=== PATIENT | female | born 1950 | race African-American/Black ===

== ENCOUNTER 2018-07-08 09:15 | Day surgery (SDC) | payer MEDICARE, OTHER ==
[2018-07-08 10:08] LABS: HEMATOCRIT 38.7 % (36.0-47.0); HEMOGLOBIN 12.8 g/dL (12.0-15.5); MEAN CORPUSCULAR HEMOGLOBIN 29.4 pg (27.0-33.4); MEAN CORPUSCULAR VOLUME 89 fl (80-97); PLATELET COUNT 248 10^3/uL (150-450); RED BLOOD COUNT 4.35 10^6/uL (3.72-5.28); RED CELL DISTRIBUTION WIDTH 13.3 % (11.5-14.0); WHITE BLOOD COUNT 5.8 10^3/uL (4.0-10.5)
[2018-07-08] MEDS ORDERED: PROPOFOL INJ 200 MG/20 ML VIAL IV ONE (10:12)
[2018-07-08 10:23] LABS: INTERNATIONAL RATION (INR) 0.98; PROTHROMBIN TIME 13.5 SEC (11.4-15.4)
[2018-07-08] MEDS ORDERED: ONDANSETRON HCL INJ/PF 4 MG/2 ML SDV IV PRN (10:35)
--- NOTE | 2018-07-08 11:23 | Discharge Summary ---
Discharge Summary (SDC) - Discharge Final Diagnosis: Multiple colonic polyps Date of Surgery: 07/08/18 Discharge Date: 07/08/18 Condition: Good Treatment or Instructions: [facility] [place] [id number] POST ENDOSCOPY DISCHARGE INSTRUCTIONS 1. Diet: Start clear liquids that a regular diet as tolerated. 2. Resume all preoperative medications. All oral anticoagulants and aspirins can be resumed 24 hours after procedure. 3. If a polypectomy was performed some bleeding per rectum may occur. This should stop within 3 days. If not, please contact the office. 4. If you had a colonoscopy you may experience some bloating and delayed return of normal bowel function for several days, your regular bowel movement pattern should resume within a week. 5. Please contact [facility] at to make an appointment with Dr. Mcclain for 1 to 3 weeks following procedure. 6. If you have any questions or concerns regarding your care,treatment plan or follow up, please contact our office. 7. Per clinical guidelines we recommend you undergo a repeat colonoscopy in three years. Referrals: CHEKO OCONNOR MD [Primary Care Provider] - Discharge Diet: As Tolerated Discharge Activity: Activity As Tolerated Home Care Assistance: None Needed Report the Following to Your Physician Immediately: Shortness of Breath, Increase in Pain, Fever over 101 Degrees
--- NOTE | 2018-07-08 11:27 | Operative Report ---
Operative Report DATE OF SURGERY: 07/08/18 PREOPERATIVE DIAGNOSIS: 1. Personal history colonic polyps. 2. History of in ternal hemorrhoids POSTOPERATIVE DIAGNOSIS: Same with multiple colonic polyps; sigmoid diverticulosis OPERATION: 1. Total colonoscopy to cecum. 2. Polypectomy x3 of the colon with hot snare device SURGEON: YUNG BHARDWAJ ANESTHESIA: LMAC TISSUE REMOVED OR ALTERED: Polyps COMPLICATIONS: None ESTIMATED BLOOD LOSS: Scant INTRAOPERATIVE FINDINGS: See below PROCEDURE: Obtaining informed consent the patient was taken from the preoperative holding area to the main endoscopy suite where monitoring devices were attached to the patient. Plan and surgical timeout were conducted The patient was placed in the left lateral decubitus position with knees to chest. A perianal examination was performed. There was no visible or palpable anorectal pathology. Sphincter tone was felt to be normal. Internal hemorrhoids were identified The flexible adult colonoscope was advanced through the anal rectal canal, all the way to the cecum. Visualization of the cecum was achieved and the ileocecal valve, the appendiceal orifice and transillumination of the anterior abdominal wall. This was an good study on a moderately well-prepped bowel; there is a fair amount of residual liquid stool particulate and even some stool balls. The colonoscope was withdrawn slowly and methodically checked and the mucosa carefully. There was no evidence of tumor, stricture, bleeding; there were 2 pedunculated polyps, small, approximately 1-3 mm, one in the transverse colon or in the ascending colon. Both were removed using a hot snare device, medium heat, with successful retrieval of both specimens were labeled accordingly. There was no bleeding at the polypectomy site. In the sigmoid colon was a sessile polyp which was removed with a hot snare device. It too was small, less than 4 mm and was removed in a similar fashion with hot snare device medium heat strength. Specimen retrieved and labeled as sigmoid colon polyp. There were a few scattered diverticulosis of the sigmoid colon. The scope was slowly withdrawn through the anal rectal canal. Complete visualization of the rectum was achieved with photodocumentation. The scope was withdrawn to the patient's anus. The patient tolerated the procedure well and was taken to the recovery area in stable condition. Because of the above findings, patient be appropriate candidate for follow-up colonoscopy in 3 years, or sooner if symptoms develop.
[2018-07-08 12:38] VITALS: BP 139/88
== END 2018-07-08 12:35 | disposition home or self-care (01) ==
LOC: END 09:15
PROVIDERS: ATTEND Surgery
DX: Z12.11 Encounter for screening for malignant neoplasm of colon (principal); K57.30 Diverticulosis of large intestine without perforation or abscess without bleeding; D12.3 Benign neoplasm of transverse colon; K63.5 Polyp of colon; Z86.010 Personal history of colon polyps; M19.90 Unspecified osteoarthritis, unspecified site; I10 Essential (primary) hypertension; Z87.891 Personal history of nicotine dependence; Z79.02 Long term (current) use of antithrombotics/antiplatelets; Z86.73 Personal history of transient ischemic attack (TIA), and cerebral infarction without residual deficits; Z79.899 Other long term (current) drug therapy
CPT/HCPCS: 45385; 36415; 85027; 85610; 85730; 88305 ×2; J2704; 811

== ENCOUNTER 2019-02-18 13:18 | Emergency (ER) | payer MEDICARE, OTHER ==
[2019-02-18] MEDS ORDERED: ONDANSETRON 4 MG TAB.RAPDIS PO ONE (14:52)
--- NOTE | 2019-02-18 14:53 | ER Document Report ---
ED Medical Screen (RME) - General Chief Complaint: Abdominal Pain Stated Complaint: ABDOMINAL PAIN Time Seen by Provider: 02/18/19 14:48 Primary Care Provider: CHEKO OCONNOR MD [Primary Care Provider] - Follow up as needed Mode of Arrival: Wheelchair Information source: Patient Notes: Patient presents complaining of left upper quadrant left lower quadrant abdo marsha pain for the past week. Patient does complain of constipation for the past week as well. Patient did have an enema and did have a bowel movement although her pain has worsened. Patient denies any fever or urinary symptoms. Patient does report some nausea with vomiting. hx: Hypertension, CVA I have greeted and performed a rapid initial assessment of this patient. A comprehensive ED assessment and evaluation of the patient, analysis of test results and completion of the medical decision making process will be conducted by additional ED providers. TRAVEL OUTSIDE OF THE [place] IN LAST 30 DAYS: No - Related Data Allergies/Adverse Reactions: hydrocodone [Hydrocodone] Allergy (Mild, Verified 02/18/19 13:19) GI upset Past Medical History - Past Medical History Cardiac Medical History: Reports: Hx Hypercholesterolemia, Hx Hypertension Denies: Hx Coronary Artery Disease, Hx Heart Attack Pulmonary Medical History: Denies: Hx Asthma, Hx Bronchitis, Hx COPD, Hx Pneumonia, Hx Tuberculosis Neurological Medical History: Reports: Hx Cerebrovascular Accident - 12/03 rt sided weakness. Denies: Hx Seizures GI Medical History: Reports: Hx Gastroesophageal Reflux Disease Musculoskeltal Medical History: Denies Hx Arthritis Past Surgical History: Reports: Hx Appendectomy, Hx Cholecystectomy, Hx Hysterectomy, Hx Orthopedic Surgery - Knee surgery. Denies: Hx Pacemaker - Immunizations Immunizations up to date: Yes Hx Diphtheria, Pertussis, Tetanus Vaccination: Yes History of Influenza Vaccine for 03/2017 - 08/2017 Season: Yes Influenza Administration Date for 03/2017 - 08/2017 Season: 03/23/18 Physical Exam - Vital signs Vitals: Temp Pulse Resp BP Pulse Ox 98.5 F 98 20 154/81 H 100 02/18/19 13:23 02/18/19 13:23 02/18/19 13:23 02/18/19 13:23 02/18/19 13:23 - Abdominal Tenderness: Tender - Left upper quadrant, left lower quadrant Course - Vital Signs Vital signs: Temp Pulse Resp BP Pulse Ox 98.5 F 98 20 154/81 H 100 02/18/19 13:23 02/18/19 13:23 02/18/19 13:23 02/18/19 13:23 02/18/19 13:23 Doctor's Discharge - Discharge Referrals: CHEKO OCONNOR MD [Primary Care Provider] - Follow up as needed
[2019-02-18 15:50] LABS: ABSOLUTE BASOPHILS # (AUTO) 0.1 10^3/uL (0.0-0.2); ABSOLUTE MONOCYTES (AUTO) 0.4 10^3/uL (0.1-1.4); ABSOLUTE NEUT (AUTO) 9.1 10^3/uL (1.7-8.2); BASOPHILS % (AUTO) 0.6 % (0-2); HEMATOCRIT 40.3 % (36.0-47.0); HEMOGLOBIN 13.2 g/dL (12.0-15.5); LYMPHOCYTES % (AUTO) 9.4 % (13-45); MEAN CORPUSCULAR HEMOGLOBIN 29.1 pg (27.0-33.4); MEAN CORPUSCULAR HGB CONC 32.8 g/dL (32.0-36.0); MEAN CORPUSCULAR VOLUME 89 fl (80-97); MONOCYTES % (AUTO) 3.7 % (3-13); PLATELET COUNT 269 10^3/uL (150-450); RED BLOOD COUNT 4.54 10^6/uL (3.72-5.28); RED CELL DISTRIBUTION WIDTH 13.1 % (11.5-14.0); SEGMENTED NEUTROPHILS % (AUTO) 86.3 % (42-78); TOTAL CELLS COUNTED % (AUTO) 100 %; WHITE BLOOD COUNT 10.5 10^3/uL (4.0-10.5)
[2019-02-18 15:53] LABS: APPEARANCE,URINE SLIGHTLY-CLOUDY; BILIRUBIN,URINE SMALL (NEGATIVE); COLOR,URINE AMBER; GLUCOSE, URINE NEGATIVE (NEGATIVE); KETONES,URINE TRACE mg/dL (NEGATIVE); LEUKOCYTE ESTERASE,URINE NEGATIVE (NEGATIVE); NITRITE,URINE NEGATIVE (NEGATIVE); PROTEIN,URINE 30 mg/dL (NEGATIVE); URINE SPECIFIC GRAVITY 1.031
[2019-02-18 16:08] LABS: ALBUMIN 4.5 g/dL (3.5-5.0); ALKALINE PHOSPHATASE 139 U/L (38-126); ANION GAP 11 (5-19); ASPARTATE AMINO TRANSFERASE 40 U/L (14-36); BILIRUBIN,DIRECT 0.2 mg/dL (0.0-0.4); BILIRUBIN,TOTAL 0.8 mg/dL (0.2-1.3); BLOOD UREA NITROGEN 15 mg/dL (7-20); CARBON DIOXIDE 27 mmol/L (22-30); CHLORIDE 102 mmol/L (98-107); GLUCOSE 125 mg/dL (75-110); TOTAL PROTEIN 7.6 g/dL (6.3-8.2)
--- NOTE | 2019-02-18 16:16 | RADIOLOGY REPORT (SQ) ---
EXAM DESCRIPTION: ACUTE ABDOMEN SERIES COMPLETED DATE/TIME: 02/18/2019 4:00 pm REASON FOR STUDY: LUQ, LLQ pain, constipation COMPARISON: None. NUMBER OF VIEWS: Three views. TECHNIQUE: Frontal chest, supine abdomen and upright/decubitus abdomen radiographic images acquired. LIMITATIONS: None. FINDINGS: CHEST: Lungs clear of infiltrates. FREE AIR: None. No abnormal gas collections. BOWEL GAS PATTERN: Abundant fecal material throughout nondilated colon. CALCIFICATIONS: No suspicious calcifications. HARDWARE: None in the abdomen. SOFT TISSUES: No gross mass or suggestion of organomegaly. BONES: No acute fracture. No worrisome bone lesions. OTHER: No other significant finding. IMPRESSION: Mild fecal retention. TECHNICAL DOCUMENTATION: JOB ID: [id number] [employer]- All Rights Reserved Reading location - IP/workstation name: [email or web address]
[2019-02-18] MEDS ORDERED: NORMAL SALINE 1000 ML 1,000 ML IV ONE (18:19)
[2019-02-18] MEDS ORDERED: FENTANYL CITRATE INJ/PF 100 MCG/2 ML AMPUL IV ONE (18:22)
--- NOTE | 2019-02-18 18:32 | ER Document Report ---
ED General - General Chief Complaint: Abdominal Pain Stated Complaint: ABDOMINAL PAIN Time Seen by Provider: 02/18/19 14:48 Primary Care Provider: CHEKO OCONNOR MD [Primary Care Provider] - Follow up as needed Mode of Arrival: Wheelchair Notes: Patient is a 68-year-old female with hypertension that presents to the emergency department for chief complaint of generalized abdominal pain. Patient states she is been having pain in her abdomen for about a week, she has not had a bowel movement over that same period of time, but after being in the last night, her pain seemed to get worse, so she decided come to the emergency department. She is been having some nausea, one episode of vomiting today as well. She currently rates her pain as a 4 out of 10 describes as a cramping and aching sensation. She states she feels gas moving around in her abdomen as well. Denies any lightheadedness, dizziness, fevers, chills, night sweats, chest pain, shortness of breath or difficulty breathing. Denies noting any blood in the stool, or any vomit. Past Medical History: Hypertension Past Surgical History: Hysterectomy, cholecystectomy, appendectomy Social History: Denies tobacco, alcohol or illicit drug use. Family History: Reviewed and noncontributory for presenting illness Allergies: Reviewed, see documented allergy list. REVIEW OF SYSTEMS: Other than noted above, the 12 point review of systems was reviewed with the patient and were negative, all pertinent findings are included in the HPI. PHYSICAL EXAMINATION: Vital signs reviewed, nursing noted reviewed. GENERAL: Patient appears mildly uncomfortable on exam, but no acute distress. Answering questions appropriately. HEAD: Atraumatic, normocephalic. EYES: Eyes appear normal, extraocular movements intact, sclera anicteric, conjunctiva are normal. ENT: nares patent, oropharynx clear without exudates. Moist mucous membranes. NECK: Normal range of motion, supple without lymphadenopathy LUNGS: Breath sounds clear to auscultation bilaterally and equal. No wheezes rales or rhonchi. HEART: Regular rate and rhythm without murmurs ABDOMEN: Soft, mild left-sided abdominal tenderness, worse in the left lower quadrant, normoactive bowel sounds. No rebound, guarding, or rigidity. No masses appreciated. EXTREMITIES: Nontender, good range of motion, no pitting or edema. NEUROLOGICAL: No focal neurological deficits. Moves all extremities spontaneously Motor and sensory grossly intact on exam. PSYCH: Normal mood, normal affect. SKIN: Warm, Dry, normal turgor, no rashes or lesions noted on exposed skin TRAVEL OUTSIDE OF THE [place] IN LAST 30 DAYS: No - Related Data Allergies/Adverse Reactions: hydrocodone [Hydrocodone] Allergy (Mild, Verified 02/18/19 13:19) GI upset Past Medical History - General Information source: Patient - Social History Smoking Status: Former Smoker Family History: Reviewed & Not Pertinent Patient has suicidal ideation: No Patient has homicidal ideation: No - Past Medical History Cardiac Medical History: Reports: Hx Hypercholesterolemia, Hx Hypertension Denies: Hx Coronary Artery Disease, Hx Heart Attack Pulmonary Medical History: Denies: Hx Asthma, Hx Bronchitis, Hx COPD, Hx Pneumonia, Hx Tuberculosis Neurological Medical History: Reports: Hx Cerebrovascular Accident - 12/03 rt sided weakness. Denies: Hx Seizures GI Medical History: Reports: Hx Gastroesophageal Reflux Disease Musculoskeletal Medical History: Denies Hx Arthritis Past Surgical History: Reports: Hx Appendectomy, Hx Cholecystectomy, Hx Hysterectomy, Hx Orthopedic Surgery - Knee surgery. Denies: Hx Pacemaker - Immunizations Immunizations up to date: Yes Hx Diphtheria, Pertussis, Tetanus Vaccination: Yes Hx Pneumococcal Vaccination: 06/23/08 Physical Exam - Vital signs Vitals: Temp Pulse Resp BP Pulse Ox 98.5 F 98 20 154/81 H 100 02/18/19 13:23 02/18/19 13:23 02/18/19 13:23 02/18/19 13:23 02/18/19 13:23 Course - Re-evaluation Re-evalutation: Patient seen and examined vital signs reviewed. Laboratory data and/or imaging were ordered as appropriate for the patient's presenting symptoms and complaint, with consideration of any critical or life threatening conditions that may be associated with their obtained history and exam as noted above. Results were reviewed when available and demonstrated essentially unremarkable blood work, patient's CT imaging did reveal descending colonic inflammation, likely colitis, possibly stercoral colitis as the patient is been constipated, but will treat with oral antibiotics with Flagyl and Augmentin for 10 days, also prescribed MiraLAX, tramadol, and Zofran, for her other symptoms, to control them at home. She is advised to follow-up with her primary care as well as gastroenterology, she last had a colonoscopy 1 year ago, low suspicion for neoplastic cause of the patient's colonic inflammation. But did advised to follow-up with gastroenterology regardless. Patient was agreeable. Evaluation was most consistent with acute colitis, abdominal pain, constipation. Results were discussed with the patient at this point, after careful consideration I feel that that patient can be discharged from the emergency department, the patient was educated treatments and reasons to return to the emergency department based on their presumed diagnosis as noted above, they were advised to followup with a primary care physician in 2-3 days. Patient was agreeable to plan of care. *Note is created using voice recognition software and may contain spelling, syntax or grammatical errors. Laboratory 02/18/19 02/18/19 02/18/19 15:15 15:31 15:31 WBC 10.5 RBC 4.54 Hgb 13.2 Hct 40.3 MCV 89 MCH 29.1 MCHC 32.8 RDW 13.1 Plt Count 269 Lymph % (Auto) 9.4 L Cocke % (Auto) 3.7 Eos % (Auto) 0.0 Baso % (Auto) 0.6 Absolute Neuts (auto) 9.1 H Absolute Lymphs (auto) 1.0 Absolute Monos (auto) 0.4 Absolute Eos (auto) 0.0 Absolute Basos (auto) 0.1 Seg Neutrophils % 86.3 H Sodium 139.6 Potassium 4.0 Chloride 102 Carbon Dioxide 27 Anion Gap 11 BUN 15 Creatinine 0.63 Est GFR ( Amer) > 60 Est GFR (MDRD) Non-Af > 60 Glucose 125 H Calcium 10.0 Total Bilirubin 0.8 Direct Bilirubin 0.2 Neonat Total Bilirubin Not Reportable Neonat Direct Bilirubin Not Reportable Neonat Indirect Bili Not Reportable AST 40 H ALT 25 Alkaline Phosphatase 139 H Troponin I Total Protein 7.6 Albumin 4.5 Lipase 33.2 Urine Color GILMER Urine Appearance SLIGHTLY-CLOUDY Urine pH 5.0 Ur Specific Scalf 1.031 Urine Protein 30 H Urine Glucose (UA) NEGATIVE Urine Ketones TRACE H Urine Blood NEGATIVE Urine Nitrite NEGATIVE Urine Bilirubin SMALL H Urine Urobilinogen 2.0 H Ur Leukocyte Esterase NEGATIVE Urine WBC (Auto) 1 Urine RBC (Auto) 2 Squamous Epi Cells Auto <1 Urine Mucus (Auto) MOD Urine Ascorbic Acid NEGATIVE 02/18/19 15:31 WBC RBC Hgb Hct MCV MCH MCHC RDW Plt Count Lymph % (Auto) Cocke % (Auto) Eos % (Auto) Baso % (Auto) Absolute Neuts (auto) Absolute Lymphs (auto) Absolute Monos (auto) Absolute Eos (auto) Absolute Basos (auto) Seg Neutrophils % Sodium Potassium Chloride Carbon Dioxide Anion Gap BUN Creatinine Est GFR ( Amer) Est GFR (MDRD) Non-Af Glucose Calcium Total Bilirubin Direct Bilirubin Neonat Total Bilirubin Neonat Direct Bilirubin Neonat Indirect Bili AST ALT Alkaline Phosphatase Troponin I < 0.012 Total Protein Albumin Lipase Urine Color Urine Appearance Urine pH Ur Specific Scalf Urine Protein Urine Glucose (UA) Urine Ketones Urine Blood Urine Nitrite Urine Bilirubin Urine Urobilinogen Ur Leukocyte Esterase Urine WBC (Auto) Urine RBC (Auto) Squamous Epi Cells Auto Urine Mucus (Auto) Urine Ascorbic Acid Abdomen/Pelvis CT 02/18/19 00:00 IMPRESSION: Inflamed segment of descending colon. This could be due to infectious, inflammatory or neoplastic process. Acute Abdomen Series 02/18/19 14:52 IMPRESSION: Mild fecal retention. - Vital Signs Vital signs: Temp Pulse Resp BP Pulse Ox 98.5 F 98 20 154/81 H 100 02/18/19 13:23 02/18/19 13:23 02/18/19 13:23 02/18/19 13:23 02/18/19 13:23 - Laboratory Result Diagrams: 02/18/19 15:31 02/18/19 15:31 Laboratory results interpreted by me: 02/18/19 02/18/19 02/18/19 15:15 15:31 15:31 Lymph % (Auto) 9.4 L Absolute Neuts (auto) 9.1 H Seg Neutrophils % 86.3 H Glucose 125 H AST 40 H Alkaline Phosphatase 139 H Urine Protein 30 H Urine Ketones TRACE H Urine Bilirubin SMALL H Urine Urobilinogen 2.0 H Discharge - Discharge Clinical Impression: Acute colitis Abdominal pain Qualifiers: Abdominal location: unspecified location Qualified Code(s): R10.9 - Unspecified abdominal pain Constipation Qualifiers: Constipation type: unspecified constipation type Qualified Code(s): K59.00 - Constipation, unspecified Condition: Stable Disposition: HOME, SELF-CARE Additional Instructions: Please complete the entire course of antibiotics as prescribed, take the pain medication sparingly only for severe pain, and I recommend he start taking MiraLAX daily, particularly after you finished the antibiotics, but she may take a dose every other day, while taking the antibiotics. I do recommend you follow-up with your primary care physician as well, and with gastroenterology. Prescriptions: Amox Tr/Potassium Clavulanate [Augmentin 875-125 Tablet] 1 tab PO BID 10 Days #20 tablet Metronidazole [Flagyl 500 mg Tablet] 500 mg PO TID #30 tablet Polyethylene Glycol 3350 [Miralax] 17 gm PO DAILY #238 gm Tramadol HCl [Ultram] 50 mg PO Q8H PRN #12 tablet PRN Reason: abdominal pain Ondansetron [Zofran Odt 4 mg Tablet] 1 tab PO Q8H PRN #15 tab.rapdis PRN Reason: For Nausea/Vomiting Referrals: CHEKO OCONNOR MD [Primary Care Provider] - Follow up in 3-5 days
--- NOTE | 2019-02-18 18:51 | RADIOLOGY REPORT (SQ) ---
EXAM DESCRIPTION: CT ABD/PELVIS WITH IV ORAL COMPLETED DATE/TIME: 02/18/2019 6:37 pm REASON FOR STUDY: LUQ, LLQ pain COMPARISON: None. TECHNIQUE: CT scan of the abdomen and pelvis performed using helical scanning technique with dynamic intravenous contrast injection. No oral contrast. Images reviewed with lung, soft tissue, and bone windows. Reconstructed coronal and sagittal MPR images reviewed. Delayed images for evaluation of the urinary system also acquired. All images stored on PACS. All CT scanners at this facility use dose modulation, iterative reconstruction, and/or weight based d osing when appropriate to reduce radiation dose to as low as reasonably achievable (ALARA). [facility]: Dose Right [facility]: CareDose [facility]: Dose Right [facility]: Teradose 4D [facility]: MicroSolar CONTRAST TYPE AND DOSE: contrast/concentration: Isovue 350.00 mg/ml; Total Contrast Delivered: 88.0 ml; Total Saline Delivered: 37.5 ml RENAL FUNCTION: GFR > 60. RADIATION DOSE: . LIMITATIONS: None. FINDINGS: LOWER CHEST: No significant findings. No nodules or infiltrates. LIVER: Small cyst left lobe. SPLEEN: Normal size. No focal lesions. PANCREAS: No masses. No significant calcifications. No adjacent inflammation or peripancreatic fluid collections. Pancreatic duct not dilated. GALLBLADDER: Surgically absent. ADRENAL GLANDS: No significant masses or asymmetry. RIGHT KIDNEY AND URETER: Small cyst. No solid mass. 1 mm stone upper pole. No hydronephrosis or hydroureter. LEFT KIDNEY AND URETER: Small cyst lower pole. No solid mass. 7 mm stone lower pole. No hydronep hrosis or hydroureter. AORTA AND VESSELS: No aneurysm. No dissection. Renal arteries, SMA, celiac without stenosis. RETROPERITONEUM: No retroperitoneal adenopathy, hemorrhage or masses. BOWEL AND PERITONEAL CAVITY: Inflamed segment of descending colon. No diverticula identified. No ob struction. No ascites or free air. APPENDIX: Not visualized. PELVIS: No mass. No free fluid. Normal bladder. ABDOMINAL WALL: No masses. No hernias. BONES: Nothing acute. OTHER: No other significant finding. IMPRESSION: Inflamed segment of descending colon. This could be due to infectious, inflammatory or neoplastic process. TECHNICAL DOCUMENTATION: JOB ID: [id number] Quality ID # [id number]: Final reports with documentation of one or more dose reduction techniques (e.g., Au tomated exposure control, adjustment of the mA and/or kV according to patient size, use of iterative reconstruction technique) 2010 [employer]- All Rights Reserved Reading location - IP/workstation name: [email or web address]
--- NOTE | 2019-02-18 19:06 | EKG REPORT ---
SEVERITY:- ABNORMAL ECG - SINUS RHYTHM WAYNE, CONSIDER BIATRIAL ABNORMALITIES CONSIDER RIGHT VENTRICULAR HYPERTROPHY : Confirmed by: Bishop Rivera MD 18-Feb-2019 19:05:58
[2019-02-18 20:09] VITALS: BP 136/65
== END 2019-02-18 19:40 | disposition home or self-care (01) ==
LOC: ER 13:18
DX: K52.9 Noninfective gastroenteritis and colitis, unspecified (principal); R10.84 Generalized abdominal pain; K59.00 Constipation, unspecified; I10 Essential (primary) hypertension; Z90.49 Acquired absence of other specified parts of digestive tract; Z90.710 Acquired absence of both cervix and uterus
CPT/HCPCS: 93005; 99284; 36415; 83690; 85025; 80053; 81001; 84484; 74022; 74177; 93010; A9270; S0119

== ENCOUNTER → 2019-03-19 | Outpatient (CLI) | payer MEDICARE, OTHER ==
[2019-03-19 16:32] LABS: ABSOLUTE BASOPHILS # (AUTO) 0.1 10^3/uL (0.0-0.2); ABSOLUTE EOSINOPHILS # (AUTO) 0.1 10^3/uL (0.0-0.6); ABSOLUTE LYMPHOCYTES (AUTO) 2.5 10^3/uL (0.5-4.7); ABSOLUTE MONOCYTES (AUTO) 0.7 10^3/uL (0.1-1.4); ABSOLUTE NEUT (AUTO) 2.8 10^3/uL (1.7-8.2); BASOPHILS % (AUTO) 1.1 % (0-2); EOSINOPHILS % (AUTO) 1.4 % (0-6); HEMATOCRIT 40.1 % (36.0-47.0); MEAN CORPUSCULAR HEMOGLOBIN 28.8 pg (27.0-33.4); MEAN CORPUSCULAR HGB CONC 32.5 g/dL (32.0-36.0); MEAN CORPUSCULAR VOLUME 89 fl (80-97); MONOCYTES % (AUTO) 12.2 % (3-13); PLATELET COUNT 215 10^3/uL (150-450); RED BLOOD COUNT 4.52 10^6/uL (3.72-5.28); RED CELL DISTRIBUTION WIDTH 13.6 % (11.5-14.0); SEGMENTED NEUTROPHILS % (AUTO) 45.3 % (42-78); TOTAL CELLS COUNTED % (AUTO) 100 %; WHITE BLOOD COUNT 6.1 10^3/uL (4.0-10.5)
--- NOTE | 2019-03-19 16:36 | RADIOLOGY REPORT (SQ) ---
EXAM DESCRIPTION: CHEST PA/LATERAL COMPLETED DATE/TIME: 03/19/2019 4:13 pm REASON FOR STUDY: PREOP COMPARISON: Two-view chest 04/09/2013 AP chest 02/18/2019 EXAM PARAMETERS: NUMBER OF VIEWS: two views TECHNIQUE: Digital Frontal and Lateral radiographic views of the chest acquired. RADIATION DOSE: NA LIMITATIONS: none FINDINGS: LUNGS AND PLEURA: No opacities, masses or pneumothorax. No pleural effusion. MEDIASTINUM AND HILAR STRUCTURES: No masses or contour abnormalities. HEART AND VASCULAR STRUCTURES: Heart normal size. No evidence for failure. BONES: No acute findings. HARDWARE: None in the chest. OTHER: No other significant finding. IMPRESSION: NO SIGNIFICANT RADIOGRAPHIC FINDING IN THE CHEST. TECHNICAL DOCUMENTATION: JOB ID: [id number] [employer]- All Rights Reserved Reading location - IP/workstation name: [email or web address]
[2019-03-19 16:37] LABS: APPEARANCE,URINE CLEAR; BILIRUBIN,URINE NEGATIVE (NEGATIVE); COLOR,URINE YELLOW; GLUCOSE, URINE NEGATIVE (NEGATIVE); KETONES,URINE NEGATIVE (NEGATIVE); LEUKOCYTE ESTERASE,URINE NEGATIVE (NEGATIVE); NITRITE,URINE NEGATIVE (NEGATIVE); PROTEIN,URINE NEGATIVE (NEGATIVE); URINE SPECIFIC GRAVITY 1.019; UROBILINOGEN,URINE NEGATIVE mg/dL (<2.0)
[2019-03-19 16:51] LABS: ANION GAP 11 (5-19); BLOOD UREA NITROGEN 12 mg/dL (7-20); CARBON DIOXIDE 24 mmol/L (22-30); CHLORIDE 102 mmol/L (98-107); GLUCOSE 84 mg/dL (75-110); POTASSIUM 4.7 mmol/L (3.6-5.0)
--- NOTE | 2019-03-20 08:51 | EKG REPORT ---
SEVERITY:- ABNORMAL ECG - SINUS RHYTHM PROBABLE LEFT ATRIAL ABNORMALITY PROBABLE INFERIOR INFARCT, AGE INDETERMINATE : Confirmed by: Wiliam Kay 20-Mar-2019 08:49:33
== END ==
LOC: OD 15:29
PROVIDERS: ATTEND Orthopaedic Surgery
DX: Z01.810 Encounter for preprocedural cardiovascular examination (principal); Z01.811 Encounter for preprocedural respiratory examination; Z01.812 Encounter for preprocedural laboratory examination; M17.12 Unilateral primary osteoarthritis, left knee; I10 Essential (primary) hypertension
CPT/HCPCS: 36415; 71046; 80048; 81001; 85025; 93005; 93010

== ENCOUNTER 2019-04-14 05:45 | Inpatient (IN) | payer MEDICARE, OTHER ==
[~2019-04-14 05:45] MED LIST: BUPIVACAINE INJ/PF LIPOSOME/PF 266 MG/20 ML SDV INJ PRN; CEFAZOLIN INJ 1 GM VIAL IV PRN; IBUPROFEN 800 MG in NORMAL SALINE 250 ML IV PRN; LACTATED RINGERS 1000 ML IV PRN; LIDOCAINE 0.5% INJ-PF (5 MG/ML) 50 ML SDV SUBCUT PRN; OXYCODONE HCL SR 10 MG TABLET PO PRN; PANTOPRAZOLE SODIUM 20 MG TABLET.DR PO PRN; VANCOMYCIN HCL 1,000 MG in DEXTROSE 5%-WATER 250 ML IV SCH
[2019-04-14] MEDS ORDERED: CEFAZOLIN INJ 1 GM VIAL ONE (06:43)
[2019-04-14] MEDS ORDERED: OXYCODONE HCL SR 10 MG TABLET PO ONE (06:43)
[2019-04-14] MEDS ORDERED: PANTOPRAZOLE SODIUM 20 MG TABLET.DR PO ONE (06:43)
[2019-04-14] MEDS ORDERED: KETAMINE HCL INJ 500 MG/10 ML VIAL ONE (07:09)
[2019-04-14] MEDS ORDERED: TRANEXAMIC ACID INJ/PF 1,000 MG/10 ML SDV ONE ×2 (07:10→09:47)
[2019-04-14] MEDS ORDERED: PROPOFOL INJ 200 MG/20 ML VIAL IV ONE (07:10)
[2019-04-14] MEDS ORDERED: FENTANYL CITRATE INJ/PF 100 MCG/2 ML AMPUL ONE (07:10)
[2019-04-14] MEDS ORDERED: MIDAZOLAM 2 MG/2 ML INJ ONE (07:10)
[2019-04-14] MEDS ORDERED: BUPIVACAINE HCL 0.5%-EPI 1:200000 INJ/PF 30 ML VIAL ONE (07:12)
[2019-04-14 07:29] LABS: PROTHROMBIN TIME 13.2 SEC (11.4-15.4)
[2019-04-14] MEDS ORDERED: MEPERIDINE HCL/PF INJ 25 MG/1 ML DISP.SYRIN IV PRN (08:08)
[2019-04-14] MEDS ORDERED: DIPHENHYDRAMINE HCL 50 MG/ML VIAL IV PRN ×2 (08:08→08:44)
[2019-04-14] MEDS ORDERED: PROMETHAZINE HCL INJ 25 MG/1 ML VIAL IV PRN ×2 (08:08)
[2019-04-14] MEDS ORDERED: FENTANYL CITRATE INJ/PF 100 MCG/2 ML AMPUL IV PRN ×3 (08:08)
[2019-04-14] MEDS ORDERED: ONDANSETRON HCL INJ/PF 4 MG/2 ML SDV IV PRN (08:44)
[2019-04-14] MEDS ORDERED: ZOLPIDEM TARTRATE 5 MG TABLET PO PRN (08:44)
[2019-04-14] MEDS ORDERED: MAG HYDROX/AL HYDROX/SIMETH SUSP 30 ML UDCUP PO PRN (08:44)
[2019-04-14] MEDS ORDERED: ONDANSETRON 4 MG TAB.RAPDIS PO PRN (08:44)
[2019-04-14] MEDS ORDERED: ACETAMINOPHEN 325 MG TABLET PO PRN (08:44)
[2019-04-14] MEDS ORDERED: OXYCODONE HCL IR 5 MG TABLET PO PRN (08:44)
[2019-04-14] MEDS ORDERED: RINGERS SOLUTION,LACTATED 1,000 ML IV PRN (08:44)
--- NOTE | 2019-04-14 08:49 | Operative Report ---
Operative Report DATE OF SURGERY: 04/14/19 PREOPERATIVE DIAGNOSIS: Left knee arthritis OPERATION: Left knee arthroplasty SURGEON: AUSTIN CHA ANESTHESIA: Spinal TISSUE REMOVED OR ALTERED: Bone to pathology ESTIMATED BLOOD LOSS: 50 PROCEDURE: Implants used: Femur: Dania triathlon size 4 CR femur Tibia: 3 tibia Tibial liner: 9 mm CS insert Patella: 32 mm oval patella Procedure with the patient supine on the operating table the left the limb is prepped and draped in a sterile fashion. The limb was elevated for exsanguination and the tourniquet inflated to 280 torr. A standard midline median parapatellar approach the knee is taken. Access is gained to the femoral canal through the intercondylar notch. Intramedullary alignment instrumentation used to resect 10 mm of distal femur in 5 of valgus. Sizing guide indicated a size 4 femur. Appropriate cutting jig is then used to fashion anterior posterior and chamfer cuts. A trial reduction femurs performed and this is judged to be adequate. Attention was next turned to the tibia. Using an extra medullary alignment system 9 millimeters was resected off the lateral tibial plateau. This is sized to a size 3 tibia. A trial reduction was now performed with a 4 femur and a 3 tibia using a 9 millimeters spacer. It is full extension and central patellofemoral tracking. The articular surface the patella was next resected using an oscillating saw. All trial implants were removed. Polymethylmethacrylate is mixed and used to cement the above implants in place. On adequate curing the cement excess cement was removed the tourniquet was deflated hemostasis obtained the wound is then closed in layers using interrupted Vicryl followed by anton. A sterile compressive dressing was applied and the patient returned to recovery room in satisfactory condition.
[2019-04-14] MEDS: TRANEXAMIC ACID INJ/PF 1,000 MG/10 ML SDV IV ONE ×2 (09:51→12:16)
[2019-04-14] MEDS ORDERED: FOLIC ACID PO SCH (10:00)
[2019-04-14] MEDS ORDERED: IRON PO SCH (10:00)
[2019-04-14] MEDS ORDERED: MULTIVITAMIN PO SCH (10:00)
--- NOTE | 2019-04-14 10:09 | RADIOLOGY REPORT (SQ) ---
EXAM DESCRIPTION: KNEE LEFT 2 VIEWS COMPLETED DATE/TIME: 04/14/2019 9:48 am REASON FOR STUDY: Post OP -Long Cassette in PACU M17.12 UNILATERAL PRIMARY OSTEOARTHRITIS, LEFT KNE E COMPARISON: None. NUMBER OF VIEWS: Two view(s). TECHNIQUE: Digital radiographic images of the left knee post-procedure. LIMITATIONS: None. FINDINGS: BONES: No worrisome or unexpected findings post-procedure. DEVICE: Total knee arthroplasty. SOFT TISSUES: No worrisome findings. Expected postoperative soft tissue changes. IMPRESSION: SATISFACTORY POSTOPERATIVE LEFT KNEE. TECHNICAL DOCUMENTATION: JOB ID: [id number] [employer]- All Rights Reserved Reading location - IP/workstation name: [email or web address]
[2019-04-14] MEDS ORDERED: ONDANSETRON HCL INJ/PF 4 MG/2 ML SDV ONE (10:25)
[2019-04-14] MEDS ORDERED: DEXAMETHASONE SOD PHOSPHATE INJ 4 MG/1 ML VIAL ONE (10:25)
[2019-04-14] MEDS: OXYCODONE HCL SR 10 MG TABLET PO SCH ×2 (12:14→23:54)
[2019-04-14] MEDS: IBUPROFEN 800 MG in NORMAL SALINE 250 ML IV SCH ×2 (13:31→23:58)
[2019-04-14] MEDS: SENNOSIDES/DOCUSATE 8.6-50 MG 1 EACH TABLET PO SCH (17:16)
[2019-04-14] MEDS ORDERED: SIMVASTATIN 10 MG TABLET PO SCH (18:00)
[2019-04-14] MEDS ORDERED: VANCOMYCIN HCL 1,000 MG in DEXTROSE 5%-WATER 250 ML IV ONE (21:00)
[2019-04-15 05:55] LABS: HEMATOCRIT 33.2 % (36.0-47.0); HEMOGLOBIN 10.9 g/dL (12.0-15.5); MEAN CORPUSCULAR HEMOGLOBIN 29.2 pg (27.0-33.4); MEAN CORPUSCULAR HGB CONC 32.7 g/dL (32.0-36.0); MEAN CORPUSCULAR VOLUME 89 fl (80-97); PLATELET COUNT 178 10^3/uL (150-450); RED BLOOD COUNT 3.73 10^6/uL (3.72-5.28); RED CELL DISTRIBUTION WIDTH 13.7 % (11.5-14.0)
[2019-04-15] MEDS ORDERED: PANTOPRAZOLE SODIUM 40 MG TABLET.DR PO SCH ×2 (06:00)
[2019-04-15] MEDS: IBUPROFEN 800 MG in NORMAL SALINE 250 ML IV SCH (06:04)
[2019-04-15 06:20] LABS: ANION GAP 7 (5-19); BLOOD UREA NITROGEN 16 mg/dL (7-20); CARBON DIOXIDE 25 mmol/L (22-30); CHLORIDE 105 mmol/L (98-107); GLUCOSE 117 mg/dL (75-110); POTASSIUM 4.7 mmol/L (3.6-5.0)
--- NOTE | 2019-04-15 06:40 | PDOC DISCHARGE SUMMARY ---
Impression - Admit/DC Date/PCP Admission Date/Primary Care Provider: 04/14/19 05:45 CHEKO OCONNOR MD Discharge Date: 04/15/19 - Discharge Diagnosis (1) Arthritis of left knee Is this a current diagnosis for this admission?: Yes - Additional Information Resuscitation Status: Full Code Discharge Diet: Regular Discharge Activity: Balance Activity w/Rest, No tub bath Referrals: CHEKO OCONNOR MD [Primary Care Provider] - AUSTIN CHA MD [ACTIVE STAFF] - 04/28/19 4:15 pm Home Medications: Clopidogrel Bisulfate [Plavix 75 Mg Tablet] 75 mg PO DAILY 11/13/12 Ezetimibe [Zetia 10 mg Tablet] 10 mg PO DAILY 04/27/13 Losartan Potassium [Cozaar 50 mg Tablet] 100 mg PO DAILY 04/27/13 Simvastatin 10 mg PO QHS 04/27/13 Verapamil HCl [Calan Sr] 240 mg PO DAILY 04/27/13 Dexlansoprazole [Dexilant 60 mg Capsule] 60 mg PO DAILY 02/18/19 Dupilumab [Dupixent] 300 mg IM ASDIR PRN 04/01/19 Multivitamin/Iron/Folic Acid [Multi-Day Plus Iron Tablet] 1 tab PO DAILY 04/01/19 Tapentadol HCl [Nucynta] 100 mg PO QID 04/01/19 History of Present Illiness History of Present Illness: ZACH MURRY is a 69 year old female Patient is a 69-year-old black female with progressive bilateral knee pain and functional disability left greater than right. Patient's admitted for elective left knee arthroplasty. Hospital Course Hospital Course: Patient is admitted through the operating room where she undergoes unconjugated left knee arthroplasty. She is returned to floor in satisfactory condition. She makes excellent progress with physical therapy and ablating on the day of surgery. Subsequent ready for discharge home with home health services and DME. Physical Exam Vital Signs: Temp Pulse Resp BP Pulse Ox 36.8 C 105 H 18 168/76 H 95 04/14/19 19:59 04/14/19 19:59 04/14/19 19:59 04/14/19 19:59 04/14/19 19:59 Intake & Output 04/13/19 04/14/19 04/15/19 06:59 06:59 06:59 Intake Total 1890 Output Total 51 Balance 1839 Weight 70.31 kg 83.2 kg General appearance: PRESENT: no acute distress Head exam: PRESENT: normocephalic Respiratory exam: PRESENT: unlabored Cardiovascular exam: PRESENT: RRR Pulses: PRESENT: +1 pedal pulses bilateral GI/Abdominal exam: PRESENT: soft Rectal exam: PRESENT: deferred Musculoskeletal exam: PRESENT: other - Compressive wrap removed from the left lower extremity. Underlying OpSite dressing with small amount of old drainage. Minimal pedal edema. Distal neurovascular examination is intact. Neurological exam: PRESENT: alert, awake, oriented to person, oriented to place, oriented to time, oriented to situation. ABSENT: motor sensory deficit Psychiatric exam: PRESENT: appropriate affect, normal mood. ABSENT: homicidal ideation, suicidal ideation Skin exam: PRESENT: dry, intact, warm. ABSENT: cyanosis, rash Results Laboratory Results: WBC 8.0 10^3/uL (4.0-10.5) 04/15/19 05:12 RBC 3.73 10^6/uL (3.72-5.28) 04/15/19 05:12 Hgb 10.9 g/dL (12.0-15.5) L 04/15/19 05:12 Hct 33.2 % (36.0-47.0) L 04/15/19 05:12 MCV 89 fl (80-97) 04/15/19 05:12 MCH 29.2 pg (27.0-33.4) 04/15/19 05:12 MCHC 32.7 g/dL (32.0-36.0) 04/15/19 05:12 RDW 13.7 % (11.5-14.0) 04/15/19 05:12 Plt Count 178 10^3/uL (150-450) 04/15/19 05:12 PT 13.2 SEC (11.4-15.4) 04/14/19 06:57 INR 1.00 04/14/19 06:57 Sodium 137.4 mmol/L (137-145) 04/15/19 05:12 Potassium 4.7 mmol/L (3.6-5.0) 04/15/19 05:12 Chloride 105 mmol/L (98-107) 04/15/19 05:12 Carbon Dioxide 25 mmol/L (22-30) 04/15/19 05:12 Anion Gap 7 (5-19) 04/15/19 05:12 BUN 16 mg/dL (7-20) 04/15/19 05:12 Creatinine 0.78 mg/dL (0.52-1.25) 04/15/19 05:12 Est GFR ( Amer) > 60 (>60) 04/15/19 05:12 Est GFR (MDRD) Non-Af > 60 (>60) 04/15/19 05:12 Glucose 117 mg/dL (75-110) H 04/15/19 05:12 Calcium 9.0 mg/dL (8.4-10.2) 04/15/19 05:12 Impressions: Knee X-Ray 04/14/19 08:46 IMPRESSION: SATISFACTORY POSTOPERATIVE LEFT KNEE. Plan Plan of Treatment: She to be discharged home with health health services and DME. Follow-up with Dr. Cha and [facility] for surgery in 2 weeks for staple removal. Time Spent: Less than 30 Minutes Stroke Is this a Stroke Patient?: No Stroke Pt being discharged on Anti-thrombolytic therapy?: Yes Acute Heart Failure - Is this a Heart Failure Patient?: No
[2019-04-15] MEDS: OXYCODONE HCL SR 10 MG TABLET PO SCH (09:24)
[2019-04-15] MEDS: SENNOSIDES/DOCUSATE 8.6-50 MG 1 EACH TABLET PO SCH (09:26)
[2019-04-15] MEDS ORDERED: LOSARTAN POTASSIUM 50 MG TABLET PO SCH (10:00)
[2019-04-15] MEDS ORDERED: EZETIMIBE 10 MG TABLET PO SCH (10:00)
[2019-04-15] MEDS ORDERED: PRENATAL VITAMIN W DHA CAPSULE PO SCH (10:00)
[2019-04-15] MEDS ORDERED: CLOPIDOGREL BISULFATE 75 MG TABLET PO SCH (10:00)
[2019-04-15 10:04] VITALS: BP 126/67
== END 2019-04-15 12:19 | disposition home health service (06) | DRG 470 ==
LOC: INOR 05:45 → 4S 10:24
PROVIDERS: ADMIT Orthopaedic Surgery; ATTEND Orthopaedic Surgery
PROC: 0SRD0J9 Replacement of Left Knee Joint with Synthetic Substitute, Cemented, Open Approach (ICD-10-PCS; principal; 2019-04-14 07:30)
DX: M17.12 Unilateral primary osteoarthritis, left knee (principal); K21.9 Gastro-esophageal reflux disease without esophagitis; I10 Essential (primary) hypertension; E78.5 Hyperlipidemia, unspecified; M25.562 Pain in left knee; M25.561 Pain in right knee; Z86.73 Personal history of transient ischemic attack (TIA), and cerebral infarction without residual deficits; Z79.01 Long term (current) use of anticoagulants; Z79.899 Other long term (current) drug therapy
CPT/HCPCS: 01402; 36415; 80048; 84132; 85027; 85610; 88305; 88311; 94799; C1713; C1776; J0690; J1100; J1741; J2250; J2405; J2704; J3010; J3370; J3490; J7050; J7060

== ENCOUNTER 2019-04-15 14:15 | Emergency (ER) | payer MEDICARE ==
[2019-04-15 14:21] VITALS: BP 152/96
== END 2019-04-15 15:54 | disposition left against medical advice (07) ==
LOC: ER 14:15
DX: Z53.21 Procedure and treatment not carried out due to patient leaving prior to being seen by health care provider (principal)

== ENCOUNTER → 2020-02-17 | Outpatient (CLI) | payer MEDICARE, OTHER ==
[2020-02-17 14:23] LABS: APPEARANCE,URINE SLIGHTLY-CLOUDY; BILIRUBIN,URINE NEGATIVE (NEGATIVE); COLOR,URINE YELLOW; GLUCOSE, URINE NEGATIVE (NEGATIVE); KETONES,URINE NEGATIVE (NEGATIVE); LEUKOCYTE ESTERASE,URINE TRACE (NEGATIVE); NITRITE,URINE NEGATIVE (NEGATIVE); PROTEIN,URINE NEGATIVE (NEGATIVE)
[2020-02-17 14:30] LABS: ADD MANUAL MICROSCOPIC YES; RBC,URINE NONE SEEN /HPF
[2020-02-17 14:31] LABS: BACTERIA,URINE 1+ /HPF
--- NOTE | 2020-02-17 14:54 | RADIOLOGY REPORT (SQ) ---
EXAM DESCRIPTION: CHEST PA/LATERAL IMAGES COMPLETED DATE/TIME: 02/17/2020 2:21 pm REASON FOR STUDY: PRE-OP COMPARISON: 03/19/2019 EXAM PARAMETERS: NUMBER OF VIEWS: two views TECHNIQUE: Digital Frontal and Lateral radiographic views of the chest acquired. RADIATION DOSE: NA LIMITATIONS: none FINDINGS: LUNGS AND PLEURA: No opacities, masses or pneumothorax. No pleural effusion. MEDIASTINUM AND HILAR STRUCTURES: No masses or contour abnormalities. HEART AND VASCULAR STRUCTURES: Heart normal size. No evidence for failure. BONES: No acute findings. HARDWARE: None in the chest. OTHER: No other significant finding. IMPRESSION: NO SIGNIFICANT RADIOGRAPHIC FINDING IN THE CHEST. TECHNICAL DOCUMENTATION: JOB ID: [id number] 2010 [employer]- All Rights Reserved Reading location - IP/workstation name: [email or web address]
[2020-02-17 15:28] LABS: ABSOLUTE EOSINOPHILS # (AUTO) 0.1 10^3/uL (0.0-0.6); ABSOLUTE LYMPHOCYTES (AUTO) 1.8 10^3/uL (0.5-4.7); ABSOLUTE MONOCYTES (AUTO) 0.5 10^3/uL (0.1-1.4); BASOPHILS % (AUTO) 0.9 % (0-2); EOSINOPHILS % (AUTO) 1.7 % (0-6); HEMATOCRIT 39.8 % (36.0-47.0); HEMOGLOBIN 13.3 g/dL (12.0-15.5); LYMPHOCYTES % (AUTO) 33.6 % (13-45); MEAN CORPUSCULAR HEMOGLOBIN 29.3 pg (27.0-33.4); MEAN CORPUSCULAR HGB CONC 33.4 g/dL (32.0-36.0); MEAN CORPUSCULAR VOLUME 88 fl (80-97); MONOCYTES % (AUTO) 8.3 % (3-13); PLATELET COUNT 247 10^3/uL (150-450); RED BLOOD COUNT 4.54 10^6/uL (3.72-5.28); RED CELL DISTRIBUTION WIDTH 13.8 % (11.5-14.0); SEGMENTED NEUTROPHILS % (AUTO) 55.5 % (42-78); TOTAL CELLS COUNTED % (AUTO) 100 %; WHITE BLOOD COUNT 5.4 10^3/uL (4.0-10.5)
[2020-02-17 16:00] LABS: ANION GAP 12 (5-19); BLOOD UREA NITROGEN 19 mg/dL (7-20); CALCIUM 9.9 mg/dL (8.4-10.2); CARBON DIOXIDE 23 mmol/L (22-30); CHLORIDE 104 mmol/L (98-107); GLUCOSE 106 mg/dL (75-110); POTASSIUM 4.7 mmol/L (3.6-5.0)
--- NOTE | 2020-02-18 11:15 | EKG REPORT ---
SEVERITY:- ABNORMAL ECG - SINUS RHYTHM PROBABLE LEFT ATRIAL ABNORMALITY PROBABLE INFERIOR INFARCT, OLD : Confirmed by: Halima Duran MD 18-Feb-2020 11:15:32
== END ==
LOC: OD 13:40
PROVIDERS: ATTEND Orthopaedic Surgery
DX: Z01.810 Encounter for preprocedural cardiovascular examination (principal); Z01.811 Encounter for preprocedural respiratory examination; Z01.812 Encounter for preprocedural laboratory examination; M17.11 Unilateral primary osteoarthritis, right knee
CPT/HCPCS: 36415; 71046; 80048; 81001; 85025; 93005; 93010

== ENCOUNTER 2020-03-20 08:51 | Inpatient (IN) | payer MEDICARE, OTHER ==
[~2020-03-20 08:51] MED LIST changes: +EPHEDRINE SULFATE INJ 50 MG/1 ML AMPULE ONE; +FENTANYL CITRATE INJ/PF 100 MCG/2 ML AMPUL ONE; +MIDAZOLAM 2 MG/2 ML INJ ONE; +ONDANSETRON HCL INJ/PF 4 MG/2 ML SDV ONE; +PROPOFOL INJ 200 MG/20 ML VIAL IV ONE; +TRANEXAMIC ACID INJ/PF 1,000 MG/10 ML SDV ONE; -VANCOMYCIN HCL 1,000 MG in DEXTROSE 5%-WATER 250 ML IV SCH
[2020-03-20] MEDS ORDERED: CEFAZOLIN 1 GM/D5W RTU 1 GM/50 ML RTUPB IV ONE (11:12)
[2020-03-20] MEDS ORDERED: OXYCODONE HCL SR 10 MG TABLET PO ONE (11:12)
[2020-03-20] MEDS ORDERED: PANTOPRAZOLE SODIUM 20 MG TABLET.DR PO ONE (11:12)
[2020-03-20] MEDS: VANCOMYCIN HCL 1,000 MG in DEXTROSE 5%-WATER 250 ML IV PRN ×2 (11:32→11:50)
[2020-03-20 11:48] LABS: INTERNATIONAL RATION (INR) 0.92; PROTHROMBIN TIME 12.6 SEC (11.4-15.4)
[2020-03-20 11:50] LABS: PARTIAL THROMBOPLASTIN TIME 57.6 SEC (23.5-35.8)
[2020-03-20] MEDS ORDERED: ONDANSETRON HCL INJ/PF 4 MG/2 ML SDV IV PRN ×2 (13:03→13:31)
[2020-03-20] MEDS ORDERED: FENTANYL CITRATE INJ/PF 100 MCG/2 ML AMPUL IV PRN ×3 (13:03)
[2020-03-20] MEDS ORDERED: DIPHENHYDRAMINE HCL 50 MG/ML VIAL IV PRN ×2 (13:03→13:57)
[2020-03-20] MEDS ORDERED: MORPHINE SULFATE 10 MG/ML INJ IV PRN ×2 (13:03→13:56)
[2020-03-20] MEDS ORDERED: MEPERIDINE HCL/PF INJ 25 MG/1 ML DISP.SYRIN IV PRN (13:03)
[2020-03-20] MEDS ORDERED: PROMETHAZINE HCL INJ 25 MG/1 ML VIAL IV PRN ×2 (13:03)
--- NOTE | 2020-03-20 13:30 | Operative Report ---
Operative Report DATE OF SURGERY: 03/20/20 PREOPERATIVE DIAGNOSIS: Right knee arthritis OPERATION: Right knee arthroplasty SURGEON: AUSTIN CHA ANESTHESIA: Spinal TISSUE REMOVED OR ALTERED: Bone to pathology ESTIMATED BLOOD LOSS: 75 PROCEDURE: Implants used: Femur: [employer] triathlon size 4 CR femur Tibia: 3 tibia Tibial liner: 9 mm CS insert Patella: 32 mm oval patella Procedure with the patient supine on the operating table the right the limb is prepped and draped in a sterile fashion. The limb was elevated for exsanguination and the tourniquet inflated to 280 torr. A standard midline median parapatellar approach the knee is taken. Access is gained to the femoral canal through the intercondylar notch. Intramedullary alignment instrumentation used to resect 10 mm of distal femur in 5 of valgus. Sizing guide indicated a size 4 femur. Appropriate cutting jig is then used to fashion anterior posterior and chamfer cuts. A trial reduction femurs performed and this is judged to be adequate. Attention was next turned to the tibia. Using an extra medullary alignment system 9 millimeters was resected off the lateral tibial plateau. This is sized to a size 3 tibia. A trial reduction was now performed with a 4 femur and a 3 tibia using a 9 millimeters spacer. It is full extension and central patellofemoral tracking. The articular surface the patella was next resected using an oscillating saw. All trial implants were removed. Polymethylmethacrylate is mixed and used to cement the above implants in place. On adequate curing the cement excess cement was removed the tourniquet was deflated hemostasis obtained the wound is then closed in layers using interrupted Vicryl followed by anton. A sterile compressive dressing was applied and the patient returned to recovery room in satisfactory condition.
[2020-03-20] MEDS ORDERED: OXYCODONE HCL IR 5 MG TABLET PO PRN (13:31)
[2020-03-20] MEDS ORDERED: RINGERS SOLUTION,LACTATED 1,000 ML IV PRN (13:31)
[2020-03-20] MEDS ORDERED: ZOLPIDEM TARTRATE 5 MG TABLET PO PRN (13:31)
[2020-03-20] MEDS ORDERED: MAG HYDROX/AL HYDROX/SIMETH SUSP 30 ML UDCUP PO PRN (13:31)
[2020-03-20] MEDS ORDERED: ONDANSETRON 4 MG TAB.RAPDIS PO PRN (13:31)
[2020-03-20] MEDS ORDERED: ACETAMINOPHEN 325 MG TABLET PO PRN (13:31)
[2020-03-20] MEDS ORDERED: (PENDING PHARMACY ID) (Tapentadol Hcl [Nucynta] 100 MG) PO SCH (14:00)
[2020-03-20] MEDS ORDERED: TRANEXAMIC ACID INJ/PF 1,000 MG/10 ML SDV IV ONE (14:00)
[2020-03-20] MEDS ORDERED: FENTANYL CITRATE INJ/PF 100 MCG/2 ML AMPUL ONE (14:10)
--- NOTE | 2020-03-20 14:34 | RADIOLOGY REPORT (SQ) ---
EXAM DESCRIPTION: KNEE RIGHT 2 VIEWS IMAGES COMPLETED DATE/TIME: 03/20/2020 2:22 pm REASON FOR STUDY: Post OP -Long Cassette in PACU M17.11 UNILATERAL PRIMARY OSTEOARTHRITIS, RIGHT KN EE COMPARISON: None. NUMBER OF VIEWS: Two views. TECHNIQUE: AP and lateral radiographic images acquired of the right knee. LIMITATIONS: None. FINDINGS: Postoperative views of the right knee show a total knee replacement in good position. IMPRESSION: Total knee replacement. Refer to operative note for further information. TECHNICAL DOCUMENTATION: JOB ID: [id number] 2010 [employer]- All Rights Reserved Reading location - IP/workstation name: [email or web address]
[2020-03-20] MEDS: PREGABALIN 75 MG CAPSULE PO SCH (17:36)
[2020-03-20] MEDS: IBUPROFEN 800 MG in NORMAL SALINE 250 ML IV SCH (17:36)
[2020-03-20] MEDS: SENNOSIDES/DOCUSATE 8.6-50 MG 1 EACH TABLET PO SCH (17:37)
[2020-03-20] MEDS: OXYCODONE HCL SR 10 MG TABLET PO SCH (21:54)
[2020-03-20] MEDS ORDERED: EZETIMIBE 10 MG TABLET PO SCH (22:00)
[2020-03-20] MEDS ORDERED: SIMVASTATIN 10 MG TABLET PO SCH (22:00)
[2020-03-20] MEDS: MORPHINE SULFATE 10 MG/ML INJ IV PRN (23:52)
[2020-03-21] MEDS: IBUPROFEN 800 MG in NORMAL SALINE 250 ML IV SCH ×2 (01:28→09:45)
[2020-03-21] MEDS ORDERED: VANCOMYCIN HCL 1,000 MG in DEXTROSE 5%-WATER 250 ML IV ONE (02:00)
[2020-03-21] MEDS ORDERED: PANTOPRAZOLE SODIUM 40 MG TABLET.DR PO SCH (06:00)
[2020-03-21] MEDS: MORPHINE SULFATE 10 MG/ML INJ IV PRN (06:39)
[2020-03-21 06:44] LABS: HEMATOCRIT 34.5 % (36.0-47.0); HEMOGLOBIN 11.5 g/dL (12.0-15.5); MEAN CORPUSCULAR HEMOGLOBIN 29.3 pg (27.0-33.4); MEAN CORPUSCULAR HGB CONC 33.4 g/dL (32.0-36.0); MEAN CORPUSCULAR VOLUME 88 fl (80-97); PLATELET COUNT 199 10^3/uL (150-450); RED BLOOD COUNT 3.93 10^6/uL (3.72-5.28); RED CELL DISTRIBUTION WIDTH 13.4 % (11.5-14.0)
[2020-03-21 07:23] LABS: ANION GAP 9 (5-19); BLOOD UREA NITROGEN 17 mg/dL (7-20); CALCIUM 8.9 mg/dL (8.4-10.2); CARBON DIOXIDE 23 mmol/L (22-30); CHLORIDE 103 mmol/L (98-107); GLUCOSE 136 mg/dL (75-110); POTASSIUM 4.7 mmol/L (3.6-5.0)
--- NOTE | 2020-03-21 08:01 | PDOC DISCHARGE SUMMARY ---
Impression - Admit/DC Date/PCP Admission Date/Primary Care Provider: 03/20/20 10:45 CHEKO OCONNOR MD Discharge Date: 03/21/20 - Additional Information Resuscitation Status: Full Code Referrals: AUSTIN CHA MD [ACTIVE STAFF] - 03/30/20 1:00 pm Home Medications: Clopidogrel Bisulfate [Plavix 75 Mg Tablet] 75 mg PO DAILY 11/13/12 Ezetimibe [Zetia 10 mg Tablet] 10 mg PO DAILY 04/27/13 Losartan Potassium [Cozaar 50 mg Tablet] 100 mg PO DAILY 04/27/13 Simvastatin 10 mg PO QHS 04/27/13 Verapamil HCl [Calan Sr] 240 mg PO DAILY 04/27/13 Dupilumab [Dupixent] 300 mg IM ASDIR PRN 04/01/19 Multivitamin/Iron/Folic Acid [Multi-Day Plus Iron Tablet] 1 tab PO DAILY 04/01/19 Tapentadol HCl [Nucynta] 100 mg PO QID 04/01/19 History of Present Illiness History of Present Illness: ZACH MURRY is a 69 year old female with longstanding history of bilateral knee arthrosis. Patient underwent left total knee arthroplasty with good results. Continued to have discomfort in her right knee. At that point decision was made to proceed with right total knee arthroplasty. Hospital Course Hospital Course: Patient underwent right total knee arthroplasty on 03/20/2020. Patient tolerated procedure well. On postop day 1 patient's pain was controlled. Had no issues overnight. Denies chest pain, shortness of breath. Patient began physical therapy on postop day #0, continued on postop day #1 which they tolerated well. At that point decision was made for discharge to home on 03/21/2020 Physical Exam Vital Signs: Temp Pulse Resp BP Pulse Ox 98.1 F 93 17 132/66 H 99 03/21/20 00:36 03/21/20 00:36 03/21/20 00:36 03/21/20 00:36 03/21/20 00:36 Intake & Output 03/20/20 03/21/20 03/22/20 06:59 06:59 06:59 Intake Total 1640 Output Total 50 Balance 1590 Weight 77 kg Musculoskeletal exam: PRESENT: other - Right knee: Dressing clean/dry/intact no erythema or drainage. Moderate thigh swelling without change, intact plantarflexion/dorsiflexion. No sensory deficits. No calf tenderness. Results Laboratory Results: WBC 6.0 10^3/uL (4.0-10.5) 03/21/20 05:32 RBC 3.93 10^6/uL (3.72-5.28) 03/21/20 05:32 Hgb 11.5 g/dL (12.0-15.5) L 03/21/20 05:32 Hct 34.5 % (36.0-47.0) L 03/21/20 05:32 MCV 88 fl (80-97) 03/21/20 05:32 MCH 29.3 pg (27.0-33.4) 03/21/20 05:32 MCHC 33.4 g/dL (32.0-36.0) 03/21/20 05:32 RDW 13.4 % (11.5-14.0) 03/21/20 05:32 Plt Count 199 10^3/uL (150-450) 03/21/20 05:32 PT 12.6 SEC (11.4-15.4) 03/20/20 11:30 INR 0.92 03/20/20 11:30 APTT 57.6 SEC (23.5-35.8) H 03/20/20 11:30 Sodium 134.7 mmol/L (137-145) L 03/21/20 05:32 Potassium 4.7 mmol/L (3.6-5.0) 03/21/20 05:32 Chloride 103 mmol/L (98-107) 03/21/20 05:32 Carbon Dioxide 23 mmol/L (22-30) 03/21/20 05:32 Anion Gap 9 (5-19) 03/21/20 05:32 BUN 17 mg/dL (7-20) 03/21/20 05:32 Creatinine 0.87 mg/dL (0.52-1.25) 03/21/20 05:32 Est GFR ( Amer) > 60 (>60) 03/21/20 05:32 Est GFR (MDRD) Non-Af > 60 (>60) 03/21/20 05:32 Glucose 136 mg/dL (75-110) H 03/21/20 05:32 Calcium 8.9 mg/dL (8.4-10.2) 03/21/20 05:32 COVID-19 Source See comment 03/15/20 09:00 COVID-19 (KATHRYN) Not Detected (Not Detect) 03/15/20 09:00 Impressions: Knee X-Ray 03/20/20 14:22 IMPRESSION: Total knee replacement. Refer to operative note for further information. Plan Plan of Treatment: Patient progressed appropriately throughout her hospital course. Will continue on aspirin for DVT prophylaxis, Percocet for pain. Will progress with physical therapy as an outpatient. On 03/21/2020 patient orthopedically stable for discharge to home. Stroke Is this a Stroke Patient?: No Acute Heart Failure Is this a Heart Failure Patient?: No
[2020-03-21] MEDS: PREGABALIN 75 MG CAPSULE PO SCH (09:45)
[2020-03-21] MEDS: SENNOSIDES/DOCUSATE 8.6-50 MG 1 EACH TABLET PO SCH (09:45)
[2020-03-21] MEDS: OXYCODONE HCL SR 10 MG TABLET PO SCH (09:45)
[2020-03-21] MEDS ORDERED: PRENATAL VITAMIN W DHA CAPSULE PO SCH (10:00)
[2020-03-21] MEDS ORDERED: IRON PO SCH (10:00)
[2020-03-21] MEDS ORDERED: FOLIC ACID PO SCH (10:00)
[2020-03-21] MEDS ORDERED: CLOPIDOGREL BISULFATE 75 MG TABLET PO SCH (10:00)
[2020-03-21] MEDS ORDERED: MULTIVITAMIN PO SCH (10:00)
[2020-03-21] MEDS ORDERED: VERAPAMIL HCL 240 MG TABLET.SA PO SCH (10:00)
[2020-03-21] MEDS ORDERED: LOSARTAN POTASSIUM 50 MG TABLET PO SCH (10:00)
[2020-03-21 12:18] VITALS: BP 113/70
== END 2020-03-21 13:20 | disposition home or self-care (01) | DRG 470 ==
LOC: INOR 10:45 → 4S 16:36
PROVIDERS: ADMIT Orthopaedic Surgery; ATTEND Orthopaedic Surgery
PROC: 0SRC0J9 Replacement of Right Knee Joint with Synthetic Substitute, Cemented, Open Approach (ICD-10-PCS; principal; 2020-03-20 12:45)
DX: M17.11 Unilateral primary osteoarthritis, right knee (principal); E78.5 Hyperlipidemia, unspecified; I10 Essential (primary) hypertension; R26.2 Difficulty in walking, not elsewhere classified; Z96.652 Presence of left artificial knee joint; K21.9 Gastro-esophageal reflux disease without esophagitis; Z90.49 Acquired absence of other specified parts of digestive tract; Z88.6 Allergy status to analgesic agent; Z86.73 Personal history of transient ischemic attack (TIA), and cerebral infarction without residual deficits; Z79.899 Other long term (current) drug therapy; Z20.828 Contact with and (suspected) exposure to other viral communicable diseases; Z87.891 Personal history of nicotine dependence
CPT/HCPCS: 01402; 36415; 80048; 85027; 85610; 85730; 87635; 88305; 88311; 94799; C1713; C1776; C9803; J0690; J1741; J2250; J2270; J2405; J2704; J3010; J3370; J3490; J7050; J7060